=== PATIENT | female | born 1940 | race Caucasian/White ===

== ENCOUNTER 2020-09-22 19:53 | Emergency (ER) | payer MEDICARE ==
[~2020-09-22] VITALS: Ht 165.1 cm; Wt 83.6 kg
[2020-09-22 23:03] VITALS: BP 187/74
== END 2020-09-22 23:00 | disposition home or self-care (01) ==
LOC: ER 19:53
DX: R51.9 Headache, unspecified (principal); R53.83 Other fatigue; R05 Cough; Z20.828 Contact with and (suspected) exposure to other viral communicable diseases; Z88.8 Allergy status to other drugs, medicaments and biological substances
CPT/HCPCS: 36415; 87635; 99283

== ENCOUNTER 2021-08-12 00:36 | Emergency (ER) | payer MEDICARE, OTHER ==
[~2021-08-12] VITALS: Ht 165.1 cm; Wt 80.0 kg
[2021-08-12] MEDS ORDERED: HYDROcodone/acetaminophen 10/325mg tab PO ONE (01:00)
[2021-08-12] MEDS ORDERED: morphine 4 MG/ML inj SYRINge IM ONE (01:00)
--- NOTE | 2021-08-12 01:20 | NUR ---
PT DEMETRI FROM C/O GROUND LEVEL FALL AFTER ATTEMPTING TO GET OUT OF BED QUICKLY TO USE THE RESTROOM, FELL ONTO HER LEFT SIDE AND STATES HER LEFT HIP AND LEFT SHOULDER/BACK HURT MORE THAN THE RIGHT SIDE; STATES SHE WENT TO THE [facility] ON THURSDAY TO BE ADJUSTED BUT STILL HURTS; HAS HAD A RECENT SCAN WITH L4/L5 DISK ISSUES; STATES PAIN IS A 6/10 SITTING STILL AND A 9/10 WHEN SHE AMBULATES; PT IS AOX4 WITH VSS; MILDLY HYPERTENSIVE DUE TO PAIN, NO SIGNIFICANT CARDIAC HX; PT ABLE TO MOVE 4 EXTREMETIES ACTIVE ROM WITHOUT ASSISTANCE BUT STATES IT IS A PAINFUL; DENIES HITTING HER HEAD AT ALL, NO BLOOD THINNERS REGULARLY.
[2021-08-12] MEDS ORDERED: HYDR-3972 PO (02:18)
--- NOTE | 2021-08-12 02:37 | NUR ---
PT HAS NO FX AND WAS ABLE TO STAND WALK TO WHEELCHAIR AND GO TO RESTROOM. PT PASSES GAIT TEST AFTER PAIN MEDICATION. PT TO F/U WITH [facility] RECEIV[facility] MANAGER AFTER REFERRAL FROM PCP.
[2021-08-12 02:39] VITALS: BP 149/68
== END 2021-08-12 02:40 | disposition home or self-care (01) ==
LOC: ER 00:37
DX: M25.552 Pain in left hip (principal); M25.551 Pain in right hip; M79.622 Pain in left upper arm; M79.621 Pain in right upper arm; Z88.8 Allergy status to other drugs, medicaments and biological substances; Z79.899 Other long term (current) drug therapy
CPT/HCPCS: 72100; 72170; 96372; 99284; J2270

== ENCOUNTER 2023-09-20 23:10 | Emergency (ER) | payer MEDICARE, OTHER ==
[~2023-09-20] VITALS: Ht 162.6 cm; Wt 84.0 kg
[2023-09-20 23:14] VITALS: TEMP 97.9
--- NOTE | 2023-09-20 23:55 | NUR ---
pt is 82 yo female c/o high BP since 09/18, no c/o headache, dizziness, nausea, chest pain/discomfort, no SOB. Pt is GCS 15 a/o x3, resp even and unlabored, skin p/w/d, has been evaluated by a provider
[2023-09-21] MEDS ORDERED: labetalol 20mg/4ml (5mg/ml) syringe IV ONE
[2023-09-21] MEDS ORDERED: LEVO100T PO (00:02)
[2023-09-21] MEDS ORDERED: SIMV-342 PO (00:02)
[2023-09-21] MEDS ORDERED: VALS40TA2 PO (00:02)
[2023-09-21] MEDS ORDERED: MULT-1085 PO (00:02)
[2023-09-21] MEDS ORDERED: ALEN70TA60 PO (00:02)
[2023-09-21 00:55] LABS: BASOPHILS # (AUTO) 0.1 X10'3 (0-0.2); BASOPHILS % (AUTO) 0.7 % (0-1); EOSINOPHILS # (AUTO) 0.1 X10'3 (0-0.9); EOSINOPHILS % (AUTO) 1.5 % (0-6); HEMATOCRIT 40.3 % (35.0-45.0); HEMOGLOBIN 13.6 g/dl (12.0-16.0); LYMPHOCYTES # (AUTO) 1.8 X10'3 (1.1-4.8); LYMPHOCYTES % (AUTO) 21.6 % (21-51); MEAN CORPUSCULAR HEMOGLOBIN 31.6 PG (27.0-31.0); MEAN CORPUSCULAR HGB CONC 33.9 g/dL (33.0-36.5); MEAN CORPUSCULAR VOLUME 93.3 FL (78-98); MEAN PLATELET VOLUME 7.6 FL (7.4-10.4); MONOCYTES # (AUTO) 0.6 X10'3 (0-0.9); MONOCYTES % (AUTO) 7.4 % (2-12); NEUTROPHILS # (AUTO) 5.8 X10'3 (1.8-7.7); NEUTROPHILS % (AUTO) 68.8 % (42-75); PLATELET COUNT 218 X10'3 (140-440); RED BLOOD COUNT 4.32 X10'6 (4.20-5.60); RED CELL DISTRIBUTION WIDTH 13.1 % (11.5-14.5); WHITE BLOOD COUNT 8.5 X10'3 (4.5-11.0)
[2023-09-21 01:07] LABS: ALANINE AMINOTRANSFERASE 51 U/L (12-78); ALBUMIN/GLOBULIN RATIO 1.3 (1.1-1.5); ALKALINE PHOSPHATASE 103 IU/L (46-116); ANION GAP 7 (8-16); ASPARTATE AMINO TRANSFERASE 36 U/L (10-37); BILIRUBIN,TOTAL 0.5 MG/DL (0.1-1.0); BLOOD UREA NITROGEN 15 MG/DL (7-18); BUN/CREATININE RATIO 16.9 (10.0-20.0); CHLORIDE 103 MMOL/L (99-107); CREATININE 0.89 MG/DL (0.40-0.90); POTASSIUM 3.8 MMOL/L (3.5-5.1); SODIUM 140 MMOL/L (135-145); TOTAL CARBON DIOXIDE 29.9 MMOL/L (24-32); TOTAL PROTEIN 7.2 G/DL (6.4-8.2); eCRCL 42 ML/MIN; eGFR 61 ML/MIN
[2023-09-21 01:22] LABS: GLUCOSE 124 MG/DL (70-104)
[2023-09-21 02:01] VITALS: RESP 18
[2023-09-21] MEDS ORDERED: AMLO5TAB4 PO (02:12)
[2023-09-21 02:30] VITALS: BP 141/66; PULSE 66; O2SAT 94
== END 2023-09-21 02:37 | disposition home or self-care (01) ==
LOC: ER 23:12
DX: I10 Essential (primary) hypertension (principal); Z88.4 Allergy status to anesthetic agent; Z88.0 Allergy status to penicillin; Z79.899 Other long term (current) drug therapy
CPT/HCPCS: 36415; 70450; 71045; 72125; 80053; 85025; 93005; 96374; 99285; J3490

== ENCOUNTER 2025-08-17 13:00 | Outpatient (CLI) | payer MEDICARE, OTHER ==
[~2025-08-17 13:00] MED LIST: ALEN70TA60 PO; AMLO5TAB4 PO; LEVO100T PO; MULT-1085 PO; SIMV-342 PO; VALS40TA2 PO
--- NOTE | 2025-08-17 14:29 | RADIOLOGY REPORT ---
PROCEDURE: MR MRI LUMBAR SPINE INDICATION: LOW BACK PAIN, CERVICALGIA,RADICULOPATHY,LUMBAR REGION Exam Date: 08/17/2025 01:07 PM COMPARISON: None TECHNIQUE: MRI lumbar spine without intravenous contrast. FINDINGS: Grade 1 anterolisthesis of L4-L5 secondary to facet degenerative changes. Alignment otherwise maintained. The vertebral body heights and marrow signal are within normal limits. Multiple vertebral body hemangiomas again noted. The visualized distal spinal cord and conus medullaris are within normal limits. The conus medullaris appears to terminate within normal limits. The visualized retroperitoneal and paraspinal soft tissues are unremarkable. Moderate degenerative disc disease throughout the lumbar spine with height loss and discussion. The following axial levels are detailed below: T12-L1: Unremarkable. L1-L2: Unremarkable. L2-L3: Mild diffuse posterior disc bulge indenting the anterior thecal sac. Bilateral facet arthropathy. No central canal narrowing. No significant foraminal narrowing. L3-L4: Mild posterior disc bulge indenting the anterior thecal SAC. Advanced facet arthropathy. Central canal is mildly narrowed measuring 9mm AP. Mild right and moderate left foraminal narrowing . L4-L5: Moderate superior disc bulge indenting the anterior decal SAC. Severe bilateral facet arthropathy. Central canal is moderate to severely narrowed measuring 6mm AP. Severe narrowing of both lateral recesses with mass effect on both L5 nerve roots. Moderate right and [id number] left foraminal narrowing. L5-S1: Mild diffuse posterior disc bulge indenting the anterior thecal sac. Bilateral facet arthropathy. No central canal narrowing. Moderate right and mild left foraminal narrowing. Disc material just abuts but does not definitely impinge both S1 nerve roots. IMPRESSION: Multilevel degenerative changes of the lumbar spine as described above. Moderate to severe central canal narrowing at L4-L5 with severe narrowing of both lateral recesses and mass effect on both L5 nerve roots. Moderate right foraminal narrowing at L5-S1 with disc material abutting but not definitely impinging both S1 nerve roots. Varying degrees of bilateral foraminal narrowing as noted above.
== END 2025-08-17 23:59 | disposition home or self-care (01) ==
LOC: MRI02 13:00
PROVIDERS: ATTEND Anesthesiology Pain Medicine
DX: M47.26 Other spondylosis with radiculopathy, lumbar region (principal); M51.16 Intervertebral disc disorders with radiculopathy, lumbar region; M53.3 Sacrococcygeal disorders, not elsewhere classified; M47.818 Spondylosis without myelopathy or radiculopathy, sacral and sacrococcygeal region; M48.07 Spinal stenosis, lumbosacral region; M35.3 Polymyalgia rheumatica; M54.50 Low back pain, unspecified; M54.2 Cervicalgia; M43.16 Spondylolisthesis, lumbar region; D18.09 Hemangioma of other sites
CPT/HCPCS: 72148